=== PATIENT | female | born 1990 | race Caucasian/White ===

== ENCOUNTER 2017-09-24 08:49 | Day surgery (SDC) | payer BC, OTHER ==
[~2017-09-24 08:49] MED LIST: Lactated Ringers 1,000 ML IV SCH; Lidocaine 1%/Sod Bicarbonate in NS 8.4% 1 ML Syringe PRN; Sodium Chloride 0.9% 10 ML Syringe FLUSH PRN
[2017-09-24] MEDS ORDERED: Sodium Chloride 0.9% 50 ML SDV ONE (09:29)
[2017-09-24] MEDS ORDERED: Lidocaine 1% with EPINEPHrine 1:100,000 20 ML MDV ONE (09:29)
--- NOTE | 2017-09-24 09:31 | PCM.PREANE ---
Preanesthetic Assessment - Anesthesia/Transfusion/Family Hx Anesthesia History: Prior Anesthesia Without Reaction Family History of Anesthesia Reaction: No Transfusion History: No Prior Transfusion(s) - Review of Systems General: No Symptoms Pulmonary: No Symptoms Cardiovascular: No Symptoms Gastrointestinal: No Symptoms Neurological: No Symptoms Other: Reports: None - Physical Assessment NPO Status Date: 09/23/17 NPO Status Time: 00:00 Pulse: 89 O2 Sat by Pulse Oximetry: 97 Respiratory Rate: 16 Blood Pressure: 103/61 Temperature: 36.9 C Height: 1.52 m Weight: 86.183 kg ASA Class: 2 Mental Status: Alert & Oriented x3 Airway Class: Mallampati = 1 Dentition: Reports: Normal Dentition Thyro-Mental Finger Breadths: 3 Mouth Opening Finger Breadths: 3 ROM/Head Extension: Full Lungs: Clear to Auscultation, Normal Respiratory Effort Cardiovascular: Regular Rate, Regular Rhythm, No Murmurs - Lab Values: Laboratory Last Values WBC 9.83 K/mm3 (3.98-10.04) 09/24/17 09:14 RBC 5.39 M/mm3 (3.98-5.22) H 09/24/17 09:14 Hgb 13.9 gm/L (11.2-15.7) 09/24/17 09:14 Hct 41.1 % (34.1-44.9) 09/24/17 09:14 MCV 76.3 fl (79.4-94.8) L 09/24/17 09:14 MCH 25.8 pg (25.6-32.2) 09/24/17 09:14 MCHC 33.8 g/dl (32.2-35.5) 09/24/17 09:14 RDW Std Deviation 40.5 fL (36.4-46.3) 09/24/17 09:14 Plt Count 379 K/mm3 (182-369) H 09/24/17 09:14 MPV 9.1 fl (9.4-12.3) L 09/24/17 09:14 Neut % (Auto) 58.9 % (34.0-71.1) 09/24/17 09:14 Lymph % (Auto) 33.2 % (19.3-51.7) 09/24/17 09:14 Webster % (Auto) 6.4 % (4.7-12.5) 09/24/17 09:14 Eos % (Auto) 1.0 (0.7-5.8) 09/24/17 09:14 Baso % (Auto) 0.2 % (0.1-1.2) 09/24/17 09:14 Neut # (Auto) 5.79 K/mm3 (1.56-6.13) 09/24/17 09:14 Lymph # (Auto) 3.26 K/mm3 (1.18-3.74) 09/24/17 09:14 Webster # (Auto) 0.63 K/mm3 (0.24-0.36) H 09/24/17 09:14 Eos # (Auto) 0.10 K/mm3 (0.04-0.36) 09/24/17 09:14 Baso # (Auto) 0.02 K/mm3 (0.01-0.08) 09/24/17 09:14 - Allergies Allergies/Adverse Reactions: Allergies Allergy/AdvReac Type Severity Reaction Status Date / Time adhesive tape Allergy Rash Verified 09/23/17 13:22 cefprozil [From Cefzil] Allergy Cannot Verified 09/23/17 13:22 Remember - Anesthesia Plan Pre-Op Medication Ordered: None - Acknowledgements Anesthesia Type Planned: General Anesthesia Pt an Appropriate Candidate for the Planned Anesthesia: Yes Alternatives and Risks of Anesthesia Discussed w Pt/Guardian: Yes Pt/Guardian Understands and Agrees with Anesthesia Plan: Yes PreAnesthesia Questionnaire HEENT History: Reports: None Cardiovascular History: Reports: None Respiratory History: Reports: None Gastrointestinal History: Reports: None Genitourinary History: Reports: None, 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: , 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 Other OB/BYN History: partial bicornuate uterus, condylomata acuminata, irregular menses, menorrhagia Musculoskeletal History: Reports: None Neurological History: Reports: Migraines Psychiatric History: Reports: Anxiety, Depression, Other (See Below) Other Psychiatric History: fatigue Endocrine/Metabolic History: Reports: None Hematologic History: Reports: Other (See Below) Other Hematologic History: + 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) Immunologic History: Reports: None Oncologic (Cancer) History: Reports: None Dermatologic History: Reports: None - Infectious Disease History Infectious Disease History: Reports: Human Papilloma Virus (HPV) - Past Surgical History Head Surgeries/Procedures: Reports: None HEENT Surgical History: Reports: Oral Surgery Cardiovascular Surgical History: Reports: None Respiratory Surgical History: Reports: None GI Surgical History: Reports: None Female Surgical History: Reports: Section, Other (See Below) Other Female Surgeries/Procedures: HPV removal surgery 2014 Endocrine Surgical History: Reports: None Neurological Surgical History: Reports: None Musculoskeletal Surgical History: Reports: None Oncologic Surgical History: Reports: None - SUBSTANCE USE Smoking Status *Q: Current Every Day Smoker Tobacco Use Within Last Twelve Months: No Second Hand Smoke Exposure: Yes Days Per Week of Alcohol Use: 0 Number of Drinks Per Day: 0 Total Drinks Per Week: 0 Recreational Drug Use History: No - HOME MEDS Home Medications: Home Meds Norelgestromin/Ethin.Estradiol [Xulane Patch] 1 patch TOP Q7D 09/23/17 [History] Phentermine HCl 37.5 mg PO DAILY 09/23/17 [History] - CURRENT (IN HOUSE) MEDS Current Meds: Current Medications Lactated Ringer's (Ringers, Lactated) 1,000 mls @ 125 mls/hr IV ASDIRECTED [facility] Stop: 09/24/17 23:00 Lidocaine/Sodium Bicarbonate (Buffered Lidocaine 1% In Ns 8.4%) 0.25 ml .XX ONETIME PRN PRN Reason: Prior to IV Start Stop: 09/24/17 18:00 Sodium Chloride (Saline Flush) 10 ml FLUSH ASDIRECTED PRN PRN Reason: Keep Vein Open Stop: 09/24/17 18:00
[2017-09-24] MEDS ORDERED: fentaNYL 100 MCG/2 ML SDV ONE ×3 (10:11→11:35)
[2017-09-24] MEDS ORDERED: Ondansetron 4 MG/2 ML SDV ONE (10:11)
[2017-09-24] MEDS ORDERED: Midazolam 1 MG/ML 2 ML SDV ONE (10:11)
[2017-09-24] MEDS ORDERED: Lidocaine 1% 4 ML ONE (10:11)
[2017-09-24] MEDS ORDERED: Propofol 200 MG/20 ML SDV ONE (10:11)
[2017-09-24] MEDS ORDERED: Ketorolac 30 MG/ML SDV ONE (11:03)
[2017-09-24] MEDS ORDERED: Lactated Ringers 1,000 ML ONE (11:08)
--- NOTE | 2017-09-24 11:18 | PCM.OPNOTE ---
- General Post-Op/Procedure Note Date of Surgery/Procedure: 09/24/17 Operative Procedure(s): Electrocoagulation of anogenital genital warts Pre Op Diagnosis: anogenital warts female Post-Op Diagnosis: Same Anesthesia Technique: General Mask Primary Surgeon: Manuel Gonzales Anesthesia Provider: Cornelius Orozco Fluid Replacement, Intraop: 1,200 EBL in mLs: 5 Drain/Tube Comments:: None Complications: None Condition: Good Free Text/Narrative:: Patient was transported to operating room #3 and placed under general anesthesia in the low dorsal lithotomy position and prepared and draped in a sterile fashion. SCDs in place and functioning. Timeout was performed confirming name date of and procedure as electrodesiccation of warts and anoscopy. No antibiotics needed. N95 mask were worn throughout the procedure. Electrode desiccation of the warts was performed. No intravaginal warts. Desiccation was performed of the multiple warts between the introitus and the anus. Injecting approximately 4 mL of 0.25% lidocaine with epinephrine for postoperative pain management. Anoscopy was performed and no intra-abdominal anal warts. There was 1 small wart at approximately 11:00 on the anal verge. This wart was electro desiccated. Patient was transported postanesthesia care unit in satisfactory condition.
[2017-09-24] MEDS ORDERED: fentaNYL 250 MCG/5 ML SDV IVPUSH PRN (11:25)
[2017-09-24] MEDS ORDERED: HYDROmorphone 0.5 MG/0.5 ML Syringe IVPUSH PRN (11:25)
--- NOTE | 2017-09-24 11:26 | PCM.POSTAN ---
POST ANESTHESIA ASSESSMENT - MENTAL STATUS Mental Status: Alert, Oriented - VITAL SIGNS Pulse Rate: 89 SaO2: 94 Resp Rate: 9 Blood Pressure: 99/45 Temperature: 37.2 C - RESPIRATORY Respiratory Status: Respiratory Rate WNL, Airway Patent, O2 Saturation Stable, Supplemental Oxygen - CARDIOVASCULAR CV Status: Pulse Rate WNL, Blood Pressure Stable - GASTROINTESTINAL GI Status: No Symptoms - PAIN Pain Score: 0 - POST OP HYDRATION Hydration Status: Adequate & Stable - OBSERVATIONS Free Text/Narrative:: no anesthesia complications noted
[2017-09-24] MEDS ORDERED: fentaNYL 100 MCG/2 ML SDV IVPUSH PRN (12:00)
[2017-09-24] MEDS ORDERED: Acetaminophen/HYDROcodone 325-5 MG Tab PO ONE (12:30)
[2017-09-24 12:32] VITALS: BP 132/62
== END 2017-09-24 13:05 | disposition home or self-care (01) ==
LOC: JD.SDS 08:49
PROVIDERS: ATTEND Obstetrics & Gynecology
DX: A63.0 Anogenital (venereal) warts (principal); F41.8 Other specified anxiety disorders; F17.200 Nicotine dependence, unspecified, uncomplicated; Z88.1 Allergy status to other antibiotic agents; Z88.8 Allergy status to other drugs, medicaments and biological substances; Z98.890 Other specified postprocedural states; Z79.899 Other long term (current) drug therapy
CPT/HCPCS: 36415; 46910; 84702; 85025; A9270; J1170; J1885; J2250; J2405; J3010; J7120; 00940; J2704

== ENCOUNTER 2017-11-14 12:47 | Emergency (ER) | payer BC ==
[2017-11-14 13:03] VITALS: BP 124/80
--- NOTE | 2017-11-14 13:30 | EDM.PDOC ---
ED HPI GENERAL MEDICAL PROBLEM - General Chief Complaint: Respiratory Problem Stated Complaint: FEVER AND COUGH Time Seen by Provider: 11/14/17 12:52 Source of Information: Reports: Patient History Limitations: Reports: No Limitations - History of Present Illness INITIAL COMMENTS - FREE TEXT/NARRATIVE: This is a 27-year-old female she is also been sick about the same time as her children from last week. She was seen by Dr. Molina and was swabbed for the flu but it was negative. Since that time she has gotten markedly worsening with increasing sore throat some ear pain lots of nasal congestion and she has a severe cough and she has paroxysms of coughing. She denies any wheezing that she is noted. She's had no nausea and vomiting and no diarrhea. She is again in the ER for reevaluation since she is getting worse. She does states she is running a fever but she has not documented it. Generalized Pain Score (Numeric/FACES): 7 - Related Data Allergies Allergy/AdvReac Type Severity Reaction Status Date / Time adhesive tape Allergy Rash Verified 09/23/17 13:22 cefprozil [From Cefzil] Allergy Cannot Verified 09/23/17 13:22 Remember Home Meds: Home Meds Azithromycin [IJP: Azithromycin] 250 mg PO ASDIRECTED #6 tab 11/14/17 [Rx] Codeine/guaiFENesin [guaiFENesin-Codeine Syrup] 5 ml PO Q6H PRN #1 cup 11/14/17 [Rx] Past Medical History HEENT History: Reports: None Cardiovascular History: Reports: None Respiratory History: Reports: None Gastrointestinal History: Reports: None Genitourinary History: Reports: None, 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: , 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 Other OB/BYN History: partial bicornuate uterus, condylomata acuminata, irregular menses, menorrhagia Musculoskeletal History: Reports: None Neurological History: Reports: Migraines Psychiatric History: Reports: Anxiety, Depression, Other (See Below) Other Psychiatric History: fatigue Endocrine/Metabolic History: Reports: None Hematologic History: Reports: Other (See Below) Other Hematologic History: + 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) Immunologic History: Reports: None Oncologic (Cancer) History: Reports: None Dermatologic History: Reports: None - Infectious Disease History Infectious Disease History: Reports: Human Papilloma Virus (HPV) - Past Surgical History Head Surgeries/Procedures: Reports: None HEENT Surgical History: Reports: Oral Surgery Cardiovascular Surgical History: Reports: None Respiratory Surgical History: Reports: None GI Surgical History: Reports: None Female Surgical History: Reports: Section, Other (See Below) Other Female Surgeries/Procedures: HPV removal surgery 2013 Endocrine Surgical History: Reports: None Neurological Surgical History: Reports: None Musculoskeletal Surgical History: Reports: None Oncologic Surgical History: Reports: None Social & Family History - Family History Family Medical History: Noncontributory - Tobacco Use Smoking Status *Q: Current Every Day Smoker Years of Tobacco use: 9 Packs/Tins Daily: 0.3 Used Tobacco, but Quit: Yes Month Tobacco Last Used: 07/2015 Second Hand Smoke Exposure: Yes - Caffeine Use Caffeine Use: Reports: Coffee - Alcohol Use Days Per Week of Alcohol Use: 0 Number of Drinks Per Day: 0 Total Drinks Per Week: 0 - Recreational Drug Use Recreational Drug Use: No ED ROS GENERAL - Review of Systems Review Of Systems: See Below Constitutional: Reports: Fever, Chills, Malaise HEENT: Reports: Ear Pain, Rhinitis, Throat Pain. Denies: Ear Discharge Respiratory: Reports: Shortness of Breath, Cough, Sputum. Denies: Wheezing Cardiovascular: Reports: No Symptoms Endocrine: Reports: No Symptoms GI/Abdominal: Denies: Abdominal Pain, Diarrhea, Nausea, Vomiting : Reports: No Symptoms Musculoskeletal: Reports: No Symptoms Skin: Reports: No Symptoms Neurological: Reports: No Symptoms Psychiatric: Reports: No Symptoms Hematologic/Lymphatic: Reports: No Symptoms ED EXAM, GENERAL - Physical Exam Exam: See Below Exam Limited By: No Limitations General Appearance: Alert, WD/WN, No Apparent Distress, Lethargic Eye Exam: Bilateral Eye: Normal Inspection Ears: Normal External Exam, Normal Canal, Normal TMs Nose: Nasal Drainage, Clear Rhinorrhea. No: Nasal Flaring Throat/Mouth: Normal Inspection, Normal Lips, Normal Voice, No Airway Compromise , Other (She is noted to have redness of the tonsils but they're not swollen and no exudates noted) Head: Normocephalic Neck: Normal Inspection, Supple, Non-Tender Respiratory/Chest: No Respiratory Distress, Lungs Clear, Other (When she takes deep breath she coughs persistently, however I don't hear any inspiratory or expiratory wheezing I don't hear any consolidation in the bases, she has no respiratory distress no intercostal retractions the only time she seems to be distress as when she starts coughing). No: Crackles, Rales, Rhonchi, Wheezing Cardiovascular: Regular Rate, Rhythm, No Murmur, Tachycardia GI/Abdominal: Soft Back Exam: Full Range of Motion Extremities: Normal Inspection, Normal Range of Motion Neurological: Alert, Oriented Psychiatric: Normal Affect, Normal Mood Skin Exam: Warm, Dry Course - Vital Signs Last Recorded V/S: Last Vital Signs Temp 37.7 F L 11/14/17 13:34 Pulse 130 H 11/14/17 13:02 Resp 40 H 11/14/17 13:02 BP 124/80 11/14/17 13:02 Pulse Ox 98 11/14/17 13:02 - Re-Assessments/Exams Free Text/Narrative Re-Assessment/Exam: 11/14/17 14:26 I spoke to the patient about the positive influenza B. She is been sick for almost 5 days now so I don't feel anti-influenza medications will make much difference. However I do believe that she is gotten an infection in her lungs or bronchitis and that she'll need some antibiotics as well as something for her cough. Departure - Departure Time of Disposition: 14:27 Disposition: Home, Self-Care 01 Condition: Fair Clinical Impression: Influenza B Acute bronchitis Qualifiers: Bronchitis organism: unspecified organism Qualified Code(s): J20.9 - Acute bronchitis, unspecified Reactive airway disease Qualifiers: Asthma severity: mild Asthma persistence: persistent Asthma complication type: uncomplicated Qualified Code(s): J45.30 - Mild persistent asthma, uncomplicated - Discharge Information Prescriptions: Azithromycin [IJP: Azithromycin] 250 mg PO ASDIRECTED #6 tab Codeine/guaiFENesin [guaiFENesin-Codeine Syrup] 5 ml PO Q6H PRN #1 cup PRN Reason: Cough Referrals: Oliva Vargas MD [Primary Care Provider] - Forms: ED Department Discharge Additional Instructions: Start the antibiotics as soon you get them, use the cough syrup as needed, try to sleep at an incline instead of flat so you can clear your phlegm, rest and sleep as much as possible, drink lots of fluids but no sugar and caffeine, follow up with your family physician later this week for recheck, if your symptoms worsen return to the ER
== END 2017-11-14 15:20 | disposition home or self-care (01) ==
LOC: JD.ED 12:47
DX: J45.30 Mild persistent asthma, uncomplicated (principal); J20.9 Acute bronchitis, unspecified; J10.1 Influenza due to other identified influenza virus with other respiratory manifestations; F17.210 Nicotine dependence, cigarettes, uncomplicated; Z88.1 Allergy status to other antibiotic agents; Z91.048 Other nonmedicinal substance allergy status
CPT/HCPCS: 87804; 99283

== ENCOUNTER 2018-02-11 08:05 | Day surgery (SDC) | payer BC ==
[~2018-02-11 08:05] MED LIST changes: +Lidocaine 1%/Sod Bicarbonate in NS 8.4% 1 ML Syringe IDERM PRN; -Lidocaine 1%/Sod Bicarbonate in NS 8.4% 1 ML Syringe PRN
--- NOTE | 2018-02-11 08:13 | PCM.PREANE ---
Preanesthetic Assessment - Anesthesia/Transfusion/Family Hx Anesthesia History: Prior Anesthesia Without Reaction Family History of Anesthesia Reaction: No Transfusion History: No Prior Transfusion(s) Intubation History: Unknown - Review of Systems General: Fatigue Pulmonary: No Symptoms (smoker: 0.5 pack per 3 days times 8 years) Cardiovascular: No Symptoms Gastrointestinal: No Symptoms Neurological: No Symptoms (Lower back pain: 4/10 currently), Headache (history of migraine headaches), Seizure (infant febrile seizure), Tingling (left arm depending on positioning) Other: Reports: None (history of polycystic ovarian syndrome), Depression, Anxiety - Physical Assessment NPO Status Date: 02/10/18 NPO Status Time: 22:30 Pulse: 116 O2 Sat by Pulse Oximetry: 98 Respiratory Rate: 16 Blood Pressure: 99/66 Temperature: 36.6 C Height: 1.52 m Weight: 82.554 kg ASA Class: 2 Mental Status: Alert & Oriented x3 Airway Class: Mallampati = 2 Dentition: Reports: Normal Dentition, Caries Thyro-Mental Finger Breadths: 3 Mouth Opening Finger Breadths: 3 ROM/Head Extension: Full Lungs: Clear to Auscultation, Normal Respiratory Effort Cardiovascular: Regular Rate, Regular Rhythm, No Murmurs - Lab Values: Labs reviewed and noted and within acceptable ranges to proceed with scheduled procedure. - Allergies Allergies/Adverse Reactions: Allergies Allergy/AdvReac Type Severity Reaction Status Date / Time adhesive tape Allergy Rash Verified 02/10/18 12:15 cefprozil [From Cefzil] Allergy Cannot Verified 02/10/18 12:15 Remember - Anesthesia Plan Pre-Op Medication Ordered: None - Acknowledgements Anesthesia Type Planned: General Anesthesia Pt an Appropriate Candidate for the Planned Anesthesia: Yes Alternatives and Risks of Anesthesia Discussed w Pt/Guardian: Yes Pt/Guardian Understands and Agrees with Anesthesia Plan: Yes PreAnesthesia Questionnaire HEENT History: Reports: None Cardiovascular History: Reports: None Respiratory History: Reports: None Gastrointestinal History: Reports: None Genitourinary History: Reports: None, STD Other Genitourinary History: HPV, 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: , 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 Other OB/BYN History: partial bicornuate uterus, condylomata acuminata, irregular menses, menorrhagia Musculoskeletal History: Reports: None Neurological History: Reports: Migraines Psychiatric History: Reports: Anxiety, Depression, Other (See Below) Other Psychiatric History: fatigue Endocrine/Metabolic History: Reports: None Hematologic History: Reports: Other (See Below) Other Hematologic History: + 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) Immunologic History: Reports: None Oncologic (Cancer) History: Reports: None Dermatologic History: Reports: None - Infectious Disease History Infectious Disease History: Reports: Human Papilloma Virus (HPV) - Past Surgical History Head Surgeries/Procedures: Reports: None HEENT Surgical History: Reports: Oral Surgery Cardiovascular Surgical History: Reports: None Respiratory Surgical History: Reports: None GI Surgical History: Reports: None Female Surgical History: Reports: Section, Other (See Below) Other Female Surgeries/Procedures: HPV removal surgery x2 Endocrine Surgical History: Reports: None Neurological Surgical History: Reports: None Musculoskeletal Surgical History: Reports: None Oncologic Surgical History: Reports: None - SUBSTANCE USE Smoking Status *Q: Current Every Day Smoker Tobacco Use Within Last Twelve Months: Cigarettes Second Hand Smoke Exposure: Yes Days Per Week of Alcohol Use: 0 Number of Drinks Per Day: 0 Total Drinks Per Week: 0 Recreational Drug Use History: No - HOME MEDS Home Medications: Home Meds . [No Known Home Meds] 02/10/18 [History] - CURRENT (IN HOUSE) MEDS Current Meds: Current Medications Lactated Ringer's (Ringers, Lactated) 1,000 mls @ 125 mls/hr IV ASDIRECTED [facility] Lidocaine/Sodium Bicarbonate (Buffered Lidocaine 1% In Ns 8.4%) 0.25 ml IDERM ONETIME PRN PRN Reason: Prior to IV Start Sodium Chloride (Saline Flush) 10 ml FLUSH ASDIRECTED PRN PRN Reason: Keep Vein Open
[2018-02-11] MEDS ORDERED: Propofol 200 MG/20 ML SDV ONE (09:43)
[2018-02-11] MEDS ORDERED: Ondansetron 4 MG/2 ML SDV ONE (09:43)
[2018-02-11] MEDS ORDERED: Rocuronium 50 MG/5 ML Vial ONE (09:43)
[2018-02-11] MEDS ORDERED: fentaNYL 250 MCG/5 ML SDV ONE (09:44)
[2018-02-11] MEDS ORDERED: ceFAZolin 1 GM Vial ONE (09:44)
[2018-02-11] MEDS ORDERED: Ketorolac 30 MG/ML SDV ONE (10:15)
[2018-02-11] MEDS: Bupivacaine 0.5% 30 ML SDV ONE ×2 (10:15→10:41)
[2018-02-11] MEDS ORDERED: Lactated Ringers 1,000 ML ONE (10:17)
[2018-02-11] MEDS ORDERED: HYDROmorphone 0.5 MG/0.5 ML Syringe ONE ×2 (10:22→10:47)
[2018-02-11] MEDS ORDERED: Meperidine PF 50 MG/ML Syringe IVPUSH PRN (10:23)
[2018-02-11] MEDS ORDERED: HYDROmorphone 0.5 MG/0.5 ML SYRINGE IVPUSH PRN (10:23)
[2018-02-11] MEDS ORDERED: Ondansetron 4 MG/2 ML SDV IVPUSH PRN (10:23)
[2018-02-11] MEDS ORDERED: fentaNYL 100 MCG/2 ML SDV IVPUSH PRN (10:23)
[2018-02-11] MEDS ORDERED: fentaNYL 100 MCG/2 ML SDV ONE (11:06)
[2018-02-11] MEDS ORDERED: Neostigmine Methylsulfate 1 MG/ML 5 ML Syringe ONE (11:30)
--- NOTE | 2018-02-11 11:44 | PCM.POSTAN ---
POST ANESTHESIA ASSESSMENT - MENTAL STATUS Mental Status: Alert, Oriented - VITAL SIGNS Pulse Rate: 100 SaO2: 95 Resp Rate: 16 Blood Pressure: 93/56 Temperature: 98 F - RESPIRATORY Respiratory Status: Respiratory Rate WNL, Airway Patent, O2 Saturation Stable, Supplemental Oxygen - CARDIOVASCULAR CV Status: Pulse Rate WNL, Blood Pressure Stable - GASTROINTESTINAL GI Status: No Symptoms - PAIN Pain Score: 0 - POST OP HYDRATION Hydration Status: Adequate & Stable
--- NOTE | 2018-02-11 11:45 | PCM.OPNOTE ---
- General Post-Op/Procedure Note Date of Surgery/Procedure: 02/11/18 Operative Procedure(s): Laparoscopy with wedge resection both ovaries 82325. Laparoscopy with lysis of adhesions 72422. Laparoscopy with paratubal cyst removal 54136. Hysteroscopy with D&C 60136 Pre Op Diagnosis: Menorrhagia, irregular menses, polycystic ovaries, pelvic pain Post-Op Diagnosis: Menorrhagia, irregular menses, polycystic ovaries, adhesions omental to abdominal wall Primary Surgeon: Manuel Gonzales Secondary Surgeon: Wilver Fofana Anesthesia Provider: Doug Romeo Reason Experimental Box Tester Was Necessary: Decrease comorbidity, co-mortality, difficult procedure, assist in surgery. Retraction. Laparoscopic surgical skills Role of Experimental Box Tester: Decrease comorbidity, co-mortality, difficult procedure, assist in surgery. Retraction. Laparoscopic surgical skills Fluid Replacement, Intraop: 1,600 Output, Urine Amount: 0 EBL in mLs: 10 Drain/Tube Comments:: none Complications: None Condition: Good Free Text/Narrative:: Patient was transported to the operating room and placed under general anesthesia with endotracheal intubation the low dorsal lithotomy position. SCDs in place and functioning prior surgery. Ancef 2 g given intravenously prior surgery without untoward effect. Prepared and draped in sterile fashion. Time out performed confirming name, date of and procedure. The area of planned umbilical incision injected with 2 ml marcaine 0.5 and 5 mm incision made and pneumoperitoneum needle introduced and pneumoperitoneum obtained without difficulty. One dense adhesion of the omentum to the anterior abdominal wall was encountered. Suprapubic 5 mm port was placed in the same fashion as the umbilical port above the scope was then introduced into the suprapubic port and the adhesion was able to be lysed with the Harmonic instrument. Additional ports were placed at left and right anterior axillary line 2 fingers in in 2 fingers above the superior iliac crest, with transillumination of the abdominal wall to attempt to avoid any vascular damage. The adhesion of the omentum to the anterior abdominal wall having been lysed, attention was turned to the pelvic organs both ovaries appeared to be polycystic in nature with multiple small excrescences consistent with fibromas. These excrescences were removed by crossclamping with the Harmonic instrument. Removed and sent to pathology for tissue evaluation. Both ovaries were evaluated and multiple cysts beneath the cortex of each ovary were noted consistent with the findings of the ultrasound films which were reviewed prior to surgery at patient's preoperative visit. The left ovary was grasped and approximately 20-25% of the ovary removed by introducing a Harmonic instrument and removing the tissue on the anti-meso- ovarian side. Approximately 2 g of tissue removed from each ovary. Multiple cysts were drained with the Harmonic instrument. Left paratubal cyst was removed by cross clamping the pedicle and activating the Harmonic instrument. Same procedure was carried out on the right ovary with additional small excrescences consistent with fibromas being removed from the left and right ovary as noted. The cul-de-sac was examined no evidence of endometriosis posterior or anterior cul-de-sac. Both tubes were normal with the exception of the small paratubal cyst that was removed from the left tube. Some filmy adhesions in the anterior cul-de-sac from previous were lysed with out difficulty. The appendix was evaluated and curved behind peritoneal reflection and was not disturbed. Interceed was then placed one half sheet left ovary and one half sheet on the right ovary and 3 mL of saline introduced to moisten the sheet and prevent dislodgment. All tissue was sent to pathology for tissue evaluation sponge needle pack asthma and sharp count correct 2 and the pneumoperitoneum reduced removing the left and right flank trochars first and observation showed no bleeding in the area of the trocar placement. The suprapubic trocar was removed no bleeding. The umbilical trocar was then removed after the pneumoperitoneum was reduced. The skin incisions were closed with 3-0 Monocryl interrupted suture and Dermabond applied. Attention was then turned to the D&C and hysteroscopy. Uterus was grasped with long Allis clamp and sounded to 8 cm. Carefully dilated to accommodate the hysteroscope and hysteroscopy was performed revealing what appeared to be an arcuate uterus left and right tubal ostia were easily visualized. No polyps. Curettage performed all tissue sent to pathology for tissue evaluation. Reevaluation of the endometrial cavity with the hysteroscope revealed no significant amount of tissue remaining and all tissue sent to pathology as noted above. Sponge needle pack instrument count correct. Patient was transported to postanesthesia care unit in satisfactory condition. No blood transfusions required. Summary of photographs: Image 001 adhesion dense omentum to anterior abdominal wall just below the umbilical trocar. Image 002 shows the left ovary and fallopian tube as well as the uterus Image 003 shows left ovary with small excrescence consistent with a possible fibroma. This was removed. Image 004 shows the left ovary with placement of the Harmonic scalpel to remove approximately 2 grams of tissue from the ovary as wedge resection. Image 005 shows the right ovary with small excrescence noted insistent with a fibroma. Image 006 shows the right ovary and left ovary after the wedge resections have been performed. Image 007 shows the appendix sweeping posterior behind the peritoneum. Image 008 shows the posterior cul-de-sac with no areas suggesting endometriosis. Image 009 shows anterior cul-de-sac with no areas of suspected endometriosis Image 010 shows both ovaries after having had the Interceed placed Image 011 shows the left flank incision after removal of trocar peritoneal surface with no bleeding. Image 012 shows hysteroscopy view of the right tubal ostium Image 013 shows hysteroscopic view of the left tubal ostium Image 014 shows tissue in the endometrial cavity and the midline of the endometrial cavity consistent with arcuate presentation. Image 015 shows additional tissue at the interior cervical os inferior portion of the endometrial cavity.
[2018-02-11] MEDS ORDERED: HYDROmorphone 0.5 MG/0.5 ML Syringe IVPUSH PRN (12:10)
[2018-02-11 13:47] VITALS: BP 106/76
== END 2018-02-11 13:55 | disposition home or self-care (01) ==
LOC: JD.SDS 08:05
PROVIDERS: ATTEND Obstetrics & Gynecology
DX: D27.0 Benign neoplasm of right ovary (principal); E28.2 Polycystic ovarian syndrome; K66.0 Peritoneal adhesions (postprocedural) (postinfection); N83.12 Corpus luteum cyst of left ovary; N83.8 Other noninflammatory disorders of ovary, fallopian tube and broad ligament; F53 Mental and behavioral disorders associated with the puerperium, not elsewhere classified; Q51.3 Bicornate uterus; F41.8 Other specified anxiety disorders; Z88.8 Allergy status to other drugs, medicaments and biological substances
CPT/HCPCS: 36415; 58661; 58662; 84703; C1765; J0690; J1170; J1885; J2405; J2710; J3010; J7120; 00840; 88305; J2704

== ENCOUNTER 2019-01-27 12:12 | Inpatient (IN) | payer OTHER ==
[2019-01-27] MEDS ORDERED: Ondansetron 4 MG/2 ML SDV IVPUSH PRN ×2 (12:38→14:19)
[2019-01-27] MEDS ORDERED: Sodium Chloride 0.9% 10 ML Syringe FLUSH PRN (12:38)
[2019-01-27] MEDS ORDERED: Nalbuphine 20 MG/ML 1 ML Syringe IVPUSH PRN (12:38)
--- NOTE | 2019-01-27 13:22 | PCM.LDHP ---
L&D History of Present Illness - General Date of Service: 01/27/19 Admit Problem/Dx: Patient Status Order with Admit Dx/Problem 01/27/19 12:38 Patient Status [ADT] Routine Admission Diagnosis/Problem Admission Diagnosis/Problem Source of Information: Patient History Limitations: Reports: No Limitations - History of Present Illness Introduction:: 28 y/o ASHLY 02/03/2019 EGA 39.0 weeks. Patient has had one prior CS due to footling breech presentation (second delivery), prior to that one vaginal delivery. Spontaneous Rupture of membranes this AM about 1130, clear fluid. Irregular contractions. Cervix 3 cm, 50% effaced, soft, posterior, vertex-3. Had been scheduled for repeat CS Wednesday01/30/19 due to USG revealing decreasing fetwl weight. Would like TOLAC/ and I have had through discussion of potential benefits/risk of same, including rupture of uterine scar and possible co-morbidity and mortality associated with same, as well as risk of section including but not limited to bleeding, infection, allergic reaction, rupture of uterus, bowel, bladder, ureteral damage and additional surgery. Will proceed with attempted TOLAC/ per patient wisshes and no contraindication to same at present. Patient had H/O Jka antibody. Last titer was 4. Babies weight estimated in 16th %tile EFW and has decreased over the last two weeks. USG measurement of EFW no absolutely accurate, confounding the process. Previous delivery 10/30/2012 at 33 weeks estimated gestational age length of labor 27 hours baby's weight 5 lbs. 7 oz. normal spontaneous vaginal delivery under epidural anesthesia Delivery 04/03/2016 at 38 weeks and 1 hour of labor due to footling presentation section performed Patient is 3 cm dilated now and will attempt having had complete discussion with she and her about the S than edges and disadvantages of same. Blood type A positive with positive antibody in (Jka) last titer 4. On 07/25/18 hemoglobin hematocrit 12.4/37.1 with MCV of 76.8 and platelets 415,000. Rubella immune. RPR nonreactive. Urine culture mixed donna suggesting contamination. Negative hepatitis B surface antigen. Negative HIV. GC and chlamydia probe negative on 07/25/18 GBS negative. Patient known to have a bicornuate uterus. Quality: Reports: Pressure Severity: Mild Pain Score: 2 Improves with: Reports: None Worsens with: Reports: None Associated Symptoms: Reports: N - Related Data Allergies/Adverse Reactions: Allergies Allergy/AdvReac Type Severity Reaction Status Date / Time adhesive tape Allergy Rash Verified 05/19/18 18:40 cefprozil [From Cefzil] Allergy Cannot Verified 05/19/18 18:40 Remember nifedipine Allergy Swelling Verified 05/19/18 18:40 Home Medications: Home Meds . 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 <75 Hematologic History: Reports: Other (See Below) Other Hematologic History: + 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) Immunologic History: Reports: None Oncologic (Cancer) History: Reports: None Dermatologic History: Reports: None - Infectious Disease History Infectious Disease History: Reports: Human Papilloma Virus (HPV) - Past Surgical History Head Surgeries/Procedures: Reports: None HEENT Surgical History: Reports: Oral Surgery Cardiovascular Surgical History: Reports: None Respiratory Surgical History: Reports: None GI Surgical History: Reports: None Female Surgical History: Reports: Section, D&C, Other (See Below) Other Female Surgeries/Procedures: HPV removal surgery x2, Part of ovary removed, and an endo scrape Endocrine Surgical History: Reports: None Neurological Surgical History: Reports: None Musculoskeletal Surgical History: Reports: None Oncologic Surgical History: Reports: None Social & Family History - Family History Family Medical History: Noncontributory - Caffeine Use Caffeine Use: Reports: Coffee, Energy Drinks, Soda, Tea H&P Review of Systems - Review of Systems: Review Of Systems: See Below General: Reports: No Symptoms HEENT: Reports: No Symptoms Pulmonary: Reports: No Symptoms Cardiovascular: Reports: No Symptoms Gastrointestinal: Reports: No Symptoms Genitourinary: Reports: No Symptoms Musculoskeletal: Reports: No Symptoms Skin: Reports: No Symptoms Psychiatric: Reports: No Symptoms Neurological: Reports: No Symptoms Hematologic/Lymphatic: Reports: No Symptoms Immunologic: Reports: No Symptoms L&D Exam - Exam Exam: See Below - OB Specific Fundal Height In cm: 39 Contraction Duration (sec): 60 Contraction Frequency (min): 34 Contraction Intensity: Mild Movement: Active Heart Tones: Present Heart Tones per Min: 145 Heart Rate (FHR) Variability: Moderate (6-25 bmp) Presentation: Vertex - Grimes Score Grimes Score Cervix Position: Posterior Grimes Score Consistency: Soft Grimes Score Effacement: 31-50% Grimes Score Dilation: 3-4 cm Grimes Score Infant's Station: -3 Grimes Score Total: 5 - Exam General: Alert, Oriented HEENT: Conjunctiva Clear, Mucosa Moist & [place], Pupils Equal Neck: Supple, Trachea Midline Lungs: Clear to Auscultation, Normal Respiratory Effort Cardiovascular: Regular Rate, Regular Rhythm GI/Abdominal Exam: Normal Bowel Sounds, Soft Genitourinary: Normal external exam (see cervical dilatation above) Extremities: Normal Inspection, Normal Range of Motion, Non-Tender, No Pedal Edema, Normal Capillary Refill Skin: Warm, Dry, Intact Psychiatric: Alert, Normal Affect, Normal Mood - Problem List (1) Desires (vaginal after ) trial SNOMED Code(s): 045583111, 353225732 ICD Code: O34.219 - MATERNAL CARE FOR UNSP TYPE SCAR FROM PREVIOUS DEL Status: Acute Current Visit: Yes (2) H/O section complicating SNOMED Code(s): 537997531, 943297709 ICD Code: O34.219 - MATERNAL CARE FOR UNSP TYPE SCAR FROM PREVIOUS DEL Status: Acute Current Visit: Yes (3) Raised antibody titer SNOMED Code(s): 474198370 ICD Code: R76.0 - RAISED ANTIBODY TITER Status: Acute Current Visit: Yes (4) Maternal atypical antibody affecting in third trimester SNOMED Code(s): 445563678, 338211629 ICD Code: O36.1930 - MATERNAL CARE FOR OTH ISOIMMUNIZATION, THIRD TRIMESTER, UNSP Status: Acute Current Visit: Yes Qualifiers: Fetus number: single or unspecified fetus Qualified Code(s): O36.1930 - Maternal care for other isoimmunization, third trimester, not applicable or unspecified (5) 39 weeks gestation of SNOMED Code(s): 06339114 ICD Code: Z3A.39 - 39 WEEKS GESTATION OF Status: Acute Current Visit: No (6) Bicornuate uterus affecting in third trimester, antepartum SNOMED Code(s): 984765141 ICD Code: O34.593 - MATERNAL CARE FOR OTH ABNLT OF GRAVID UTERUS, THIRD TRI; Q51.3 - BICORNATE UTERUS Status: Acute Current Visit: No (7) Previous delivery, antepartum SNOMED Code(s): 597741385, 614779057 ICD Code: O34.219 - MATERNAL CARE FOR UNSP TYPE SCAR FROM PREVIOUS DEL Status: Acute Current Visit: No Problem List Initiated/Reviewed/Updated: No Orders Last 24hrs: Active Orders 24 hr Category Date Time Status Patient Status [ADT] Routine ADT 01/27/19 12:38 Active Activity as Tolerated [RC] PFP Care 01/27/19 12:38 Active Communication Order [RC] ASDIRECTED Care 01/27/19 12:38 Active Heart Tones [RC] ASDIRECTED Care 01/27/19 12:38 Active Non Stress Test [RC] PER UNIT ROUTINE Care 01/27/19 12:38 Active Notify Provider [RC] PFP Care 01/27/19 12:38 Active Notify Provider [RC] PRN Care 01/27/19 12:38 Active Peripheral IV Care [RC] . DIRECTED Care 01/27/19 12:38 Active Pump Management, Intrathecal [RC] ASDIRECTED Care 01/27/19 12:40 Active Urinary Catheter Assessment [RC] ASDIRECTED Care 01/27/19 12:38 Active Vital Signs [RC] PER UNIT ROUTINE Care 01/27/19 12:38 Active Regular Diet [DIET] Diet 01/27/19 Lunch Active CBC WITH AUTO DIFF [HEME] Routine Lab 01/27/19 12:38 Ordered RAPID PLASMA REAGIN,RPR [CHEM] Routine Lab 01/27/19 12:38 Ordered TYPE AND SCREEN [BBK] Routine Lab 01/27/19 12:38 Ordered Lactated Ringers [Ringers, Lactated] 1,000 ml Med 01/27/19 12:45 Active IV ASDIRECTED Nalbuphine [Nubain] Med 01/27/19 12:38 Active 10 mg IVPUSH Q2H PRN Ondansetron [Zofran] Med 01/27/19 12:38 Active 4 mg IVPUSH Q4H PRN Sodium Chloride 0.9% [Saline Flush] Med 01/27/19 12:38 Active 10 ml FLUSH ASDIRECTED PRN Electronic Heart Tones Ext w TOCO [WOMSER] Oth 01/27/19 12:38 Ordered Routine Electronic Heart Tones Internal [WOMSER] Per Unit Oth 01/27/19 12:38 Ordered Routine Peripheral IV Insertion Adult [OM.PC] Routine Oth 01/27/19 12:38 Ordered Resuscitation Status Routine Resus Stat 01/27/19 12:38 Ordered Medication Orders Lactated Ringer's (Ringers, Lactated) 1,000 mls @ 100 mls/hr IV ASDIRECTED EVERETTE Nalbuphine HCl (Nubain) 10 mg IVPUSH Q2H PRN PRN Reason: pain Ondansetron HCl (Zofran) 4 mg IVPUSH Q4H PRN PRN Reason: Nausea/Vomiting Sodium Chloride (Saline Flush) 10 ml FLUSH ASDIRECTED PRN PRN Reason: Keep Vein Open Assessment/Plan Comment:: Plan TOLAC/ with section if needed. Due to her antibody titer (Jka ) blood in needed will need to be O negative if needed STAT because her blood will need to be sent to [facility] and no Jka antibody free blood in our lab.
[2019-01-27] MEDS ORDERED: ePHEDrine 50 MG/ML SDV IVPUSH PRN (14:19)
[2019-01-27] MEDS ORDERED: fentaNYL/Bupivacaine-NS 2 MCG/ML-0.125%/PF 100 ML Bag EPIDUR ONE (14:19)
[2019-01-27] MEDS ORDERED: diphenhydrAMINE 50 MG/ML SDV IVPUSH PRN (14:19)
[2019-01-27] MEDS ORDERED: fentaNYL 100 MCG/2 ML SDV EPIDUR PRN (14:19)
--- NOTE | 2019-01-27 14:19 | PCM.PREANE ---
Preanesthetic Assessment - Anesthesia/Transfusion/Family Hx Anesthesia History: Prior Anesthesia Without Reaction Family History of Anesthesia Reaction: No Transfusion History: No Prior Transfusion(s) Intubation History: Unknown - Review of Systems General: No Symptoms Pulmonary: No Symptoms Cardiovascular: No Symptoms Gastrointestinal: Other (Heart burn) Neurological: Headache (Migraines), Other (States she has a "bad back" seeks careers counsellor as needed. Previous epidural took multiple attempts in [place]. Does not have any numbness/tingling in her legs. No current back pain other than labor pains. ) Other: Reports: Diabetes (Hypoglycemia), Depression, Anxiety - Physical Assessment O2 Sat by Pulse Oximetry: 98 Respiratory Rate: 18 Vital Signs: Last Vital Signs Temp 36.7 C 01/27/19 12:38 Pulse 93 01/27/19 12:38 Resp 18 01/27/19 12:38 BP 129/85 01/27/19 12:38 Pulse Ox 98 01/27/19 12:38 Height: 1.52 m Weight: 93.894 kg ASA Class: 2 Mental Status: Alert & Oriented x3 Airway Class: Mallampati = 1 Dentition: Reports: Normal Dentition Thyro-Mental Finger Breadths: 3 Mouth Opening Finger Breadths: 3 ROM/Head Extension: Full Lungs: Clear to Auscultation, Normal Respiratory Effort Cardiovascular: Regular Rate, Regular Rhythm - Lab Values: Laboratory Last Values WBC 9.95 K/mm3 (3.98-10.04) 01/27/19 12:58 RBC 4.45 M/mm3 (3.98-5.22) 01/27/19 12:58 Hgb 10.7 gm/L (11.2-15.7) L 01/27/19 12:58 Hct 32.8 % (34.1-44.9) L 01/27/19 12:58 MCV 73.7 fl (79.4-94.8) L 01/27/19 12:58 MCH 24.0 pg (25.6-32.2) L 01/27/19 12:58 MCHC 32.6 g/dl (32.2-35.5) 01/27/19 12:58 RDW Std Deviation 41.1 fL (36.4-46.3) 01/27/19 12:58 Plt Count 362 K/mm3 (182-369) 01/27/19 12:58 MPV 9.9 fl (9.4-12.3) 01/27/19 12:58 Neut % (Auto) 74.0 % (34.0-71.1) H 01/27/19 12:58 Lymph % (Auto) 19.4 % (19.3-51.7) 01/27/19 12:58 [place] % (Auto) 5.5 % (4.7-12.5) 01/27/19 12:58 Eos % (Auto) 0.5 (0.7-5.8) L 01/27/19 12:58 Baso % (Auto) 0.1 % (0.1-1.2) 01/27/19 12:58 Neut # (Auto) 7.36 K/mm3 (1.56-6.13) H 01/27/19 12:58 Lymph # (Auto) 1.93 K/mm3 (1.18-3.74) 01/27/19 12:58 [place] # (Auto) 0.55 K/mm3 (0.24-0.36) H 01/27/19 12:58 Eos # (Auto) 0.05 K/mm3 (0.04-0.36) 01/27/19 12:58 Baso # (Auto) 0.01 K/mm3 (0.01-0.08) 01/27/19 12:58 Blood Type A POSITIVE 01/27/19 12:58 Gel Antibody Screen Positive 01/27/19 12:58 - Allergies Allergies/Adverse Reactions: Allergies Allergy/AdvReac Type Severity Reaction Status Date / Time adhesive tape Allergy Rash Verified 05/19/18 18:40 cefprozil [From Cefzil] Allergy Cannot Verified 05/19/18 18:40 Remember nifedipine Allergy Swelling Verified 05/19/18 18:40 - Acknowledgements Anesthesia Type Planned: Epidural Pt an Appropriate Candidate for the Planned Anesthesia: Yes Alternatives and Risks of Anesthesia Discussed w Pt/Guardian: Yes Pt/Guardian Understands and Agrees with Anesthesia Plan: Yes PreAnesthesia Questionnaire HEENT History: Reports: None Cardiovascular History: Reports: None Respiratory History: Reports: None Gastrointestinal History: Reports: None Genitourinary History: Reports: None, STD Other Genitourinary History: HPV, hematuria 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 <75 Hematologic History: Reports: Other (See Below) Other Hematologic History: + 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) Immunologic History: Reports: None Oncologic (Cancer) History: Reports: None Dermatologic History: Reports: None - Infectious Disease History Infectious Disease History: Reports: Human Papilloma Virus (HPV) - Past Surgical History Head Surgeries/Procedures: Reports: None HEENT Surgical History: Reports: Oral Surgery Cardiovascular Surgical History: Reports: None Respiratory Surgical History: Reports: None GI Surgical History: Reports: None Female Surgical History: Reports: Section, D&C, Other (See Below) Other Female Surgeries/Procedures: HPV removal surgery x2, Part of ovary removed, and an endo scrape Endocrine Surgical History: Reports: None Neurological Surgical History: Reports: None Musculoskeletal Surgical History: Reports: None Oncologic Surgical History: Reports: None - SUBSTANCE USE Smoking Status *Q: Former Smoker Tobacco Use Within Last Twelve Months: Cigarettes Second Hand Smoke Exposure: Yes Recreational Drug Use History: No - HOME MEDS Home Medications: Home Meds Vits #93/Iron Fum/FA [ Formula Tablet] 1 tab PO DAILY 01/27/19 [History] diphenhydrAMINE HCl [Benadryl Allergy] 25 mg PO DAILY PRN 01/27/19 [History] - CURRENT (IN HOUSE) MEDS Current Meds: Current Medications Lactated Ringer's (Ringers, Lactated) 1,000 mls @ 100 mls/hr IV ASDIRECTED EVERETTE Nalbuphine HCl (Nubain) 10 mg IVPUSH Q2H PRN PRN Reason: pain Ondansetron HCl (Zofran) 4 mg IVPUSH Q4H PRN PRN Reason: Nausea/Vomiting Sodium Chloride (Saline Flush) 10 ml FLUSH ASDIRECTED PRN PRN Reason: Keep Vein Open
[2019-01-27] MEDS: Lactated Ringers 1,000 ML IV SCH ×5 (14:58→22:37)
[2019-01-27] MEDS ORDERED: Oxytocin/Lactated Ringers 10 UNIT/1,000 ML BAG IV SCH (16:30)
--- NOTE | 2019-01-27 16:57 | PCM.SN ---
- Free Text/Narrative Note: Cervix 4 CM, 80% effaced, soft, midposition Vertex-3. Epidural in place and working well. Beginning Pitocin as no change in cervix for 3 hours. Cat I FHT.
--- NOTE | 2019-01-27 20:22 | PCM.SN ---
- Free Text/Narrative Note: Erna is 5 cm dilated 90% effaced soft mid position to anterior with category 1 heart rates with 2 variable decelerations noted between 1950 and 1999 hrs. Uterine pressure catheter placed just now to see if patient having adequate contractions. heart tone electrode also placed. Patient is having Pitocin augmentation and presently at 10 M IUs per minute. I had a discussion with patient and her will see if there is any additional progress in the next hour and a half and if not significant progress will proceed with section. Will also place heart rate electrode. The B strep negative. I did talk with ribbon hanking machine operator SASH FINISHER doctor Omar, and room service associate Dr. Thrasher so that they are aware of possible section if no progress is made. Bring room and anesthesia will also be alerted.
[2019-01-28] MEDS ORDERED: Clindamycin Phosphate 900 MG in Sodium Chloride 0.9% 100 ML IV ONE ×2 (00:49→01:00)
[2019-01-28] MEDS ORDERED: Citric Acid/Sodium Citrate Solution 30 ML Cup PO ONE (00:52)
[2019-01-28] MEDS ORDERED: Metoclopramide 10 MG/2 ML SDV IVPUSH ONE (00:52)
--- NOTE | 2019-01-28 00:52 | PCM.SN ---
- Free Text/Narrative Note: Patient became completely dilated at 1130 hrs. and began pushing at 1135 hrs.) 2335 hrs.) on 01/27/19. Patient has been pushing for 1 hour and 15 minutes epidural has been turned off for 1 hour and 15 minutes as well. Patient has made no progress from 0 station with any descent into the pelvis. Patient is exhausted and patient now complaining of left upper pubic pain which is constant. No vaginal bleeding indicate separation of the lower uterine incision. Patient is exhausted and patient's and I have decided to proceed with section. Pitocin has been turned off.
[2019-01-28] MEDS ORDERED: Metoclopramide 10 MG/2 ML SDV ONE (01:02)
[2019-01-28] MEDS ORDERED: Phenylephrine/Normal Saline 100 MCG/ML 10 ML Syringe ONE (01:12)
[2019-01-28] MEDS ORDERED: Ondansetron 4 MG/2 ML SDV ONE (01:12)
[2019-01-28] MEDS ORDERED: Ketorolac 30 MG/ML SDV ONE (01:12)
[2019-01-28] MEDS ORDERED: Lactated Ringers 2,000 ML ONE (01:12)
[2019-01-28] MEDS ORDERED: Oxytocin 10 Units/1 ML SDV ONE (01:12)
[2019-01-28] MEDS ORDERED: Lidocaine 2% with EPINEPHrine 1:200,000 20 ML SDV ONE (01:12)
[2019-01-28] MEDS ORDERED: Morphine PF 10 MG/10 ML SDV ONE (01:12)
[2019-01-28] MEDS ORDERED: fentaNYL 100 MCG/2 ML SDV ONE (01:12)
[2019-01-28] MEDS ORDERED: HYDROmorphone 0.5 MG/0.5 ML Syringe IVPUSH PRN (01:51)
[2019-01-28] MEDS ORDERED: fentaNYL 100 MCG/2 ML SDV IVPUSH PRN (01:51)
[2019-01-28] MEDS ORDERED: diphenhydrAMINE 50 MG/ML SDV IVPUSH PRN ×2 (01:51→05:02)
[2019-01-28] MEDS ORDERED: ePHEDrine 50 MG/ML SDV IVPUSH PRN ×2 (01:51→05:02)
[2019-01-28] MEDS ORDERED: Ondansetron 4 MG/2 ML SDV IVPUSH PRN (01:51)
[2019-01-28] MEDS ORDERED: Meperidine 50 MG/ML Vial ONE (01:53)
[2019-01-28] MEDS ORDERED: Phenylephrine 1 MG in Sodium Chloride 0.9% 10 ML IV SCH (02:00)
--- NOTE | 2019-01-28 02:39 | PCM.POSTAN ---
POST ANESTHESIA ASSESSMENT - MENTAL STATUS Mental Status: Alert - VITAL SIGNS Pulse Rate: 99 SaO2: 99 Resp Rate: 23 Blood Pressure: 108/56 Temperature: 36.4 C - RESPIRATORY Respiratory Status: Respiratory Rate WNL, Airway Patent, O2 Saturation Stable - CARDIOVASCULAR CV Status: Pulse Rate WNL, Blood Pressure Stable - GASTROINTESTINAL GI Status: No Symptoms - POST OP HYDRATION Hydration Status: Adequate & Stable
--- NOTE | 2019-01-28 02:53 | PCM.OPNOTE ---
- General Post-Op/Procedure Note Date of Surgery/Procedure: 01/28/19 Pre Op Diagnosis: Arrestive descent second stage, prior section, failed trial of labor after /, JK a antibody Post-Op Diagnosis: Same plus nuchal cord times one, persistent occiput posterior. Anesthesia Technique: Epidural Primary Surgeon: Manuel Gonzales Secondary Surgeon: Maryam Nelson Anesthesia Provider: Tiffanie Abarca Reason Sales Support Representative Was Necessary: Asst. surgery, decrease comorbidity and mortality. Role of Sales Support Representative: Asst. surgery, decrease comorbidity and mortality. Fluid Replacement, Intraop: 800 Output, Urine Amount: 100 EBL in mLs: 500 Drain/Tube Comments:: Mitchell Complications: None Condition: Good Free Text/Narrative:: Intake & Output 01/27/19 01/27/19 01/28/19 14:59 22:59 06:59 Intake Total 3000 Output Total 100 Balance 3000 -100 Patient was transported to the operating room and placed under epidural anesthesia in the supine position with a wedge under the right hip and right flank. SCDs in place and functioning prior surgery. Prophylactic antibiotics given because of her allergy to cephalosporins and clindamycin 900 mg and gentamicin 465 mg.Trak C drape applied to allow better visualization of the area of the planned incision. Prepared and draped in a sterile fashion with Mitchell catheter to gravity drainage. Timeout was performed confirming name date of and procedure as section with failed trial of labor after /. Adequate level of anesthesia was confirmed the area of the planned incision marked and was brought to the operating room. Injecting 20 mL of 0.5% Marcaine without epinephrine in the area of the planned incision the Pfannenstiel incision was made and care was sharp section to into the anterior fascia, the peritoneal cavity was entered without difficulty. A low segment transverse was performed the area of the previous scar was intact with no fenestration or disruption of the prior section. Upon entry into the amnionic cavity amnionic fluid was clear. The fetus was in a occiput posterior presentation with nuchal cord times one delivery was accomplished without difficulty cord clamped and handed to the channel machine operator (Dr. Thrasher) who cared for the . Routine cord blood was collected. Placenta was removed manually. 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 The endometrial cavity was inspected no remnants of placenta or membrane. Sponge needle pack instrument and sharp count correct times one and the uterus was closed with 2 layers. First layer running locking suture of 0 Monocryl. Second layer a horizontal imbricating suture of modified Lembert type. Hemostasis was normal both tubes and ovaries were normal. Cul-de-sac and bilateral gutters were cleaned of blood in the uterus placed into the abdominal cavity. The uterine incision reinspected and no bleeding. Sponge needle pack instrument and sharp count correct 2 and the abdominal cavity was closed with #1 PDS suture running. Irrigation was carried out and subcutaneous tissue and 3 interrupted 0 Monocryl sutures placed for approximation of the subcutaneous tissue. The skin was closed with subcuticular suture of 3-0 Monocryl on Maxime needle. Dermabond Preneo applied. Clots cleaned from the vagina at the end of the procedure. Patient was transported postanesthesia care unit in satisfactory condition. No blood transfusions were required. This note was created, at least in part, by the use of [employer] voice dictation system. Inadvertent typographical errors, due to software recognition problems, may exist.
[2019-01-28] MEDS ORDERED: Bupivacaine 0.5% 30 ML SDV ONE (03:04)
[2019-01-28] MEDS ORDERED: Acetaminophen 325 MG Tab PO PRN (05:02)
[2019-01-28] MEDS ORDERED: Lanolin 100% Cream 7 GM Tube TOP PRN (05:02)
[2019-01-28] MEDS ORDERED: Dextrose 5%-Lactated Ringers 1,000 ML IV SCH (05:02)
[2019-01-28] MEDS ORDERED: Naloxone 0.4 MG/ML SDV IVPUSH PRN (05:02)
[2019-01-28] MEDS ORDERED: Witch Hazel Medicated Pads 40/Jar TOP PRN (05:02)
[2019-01-28] MEDS ORDERED: Ondansetron 4 MG/2 ML SDV IV PRN (05:02)
[2019-01-28] MEDS ORDERED: Docusate Sodium 100 MG Cap PO PRN (05:02)
--- NOTE | 2019-01-28 07:36 | PCM48HPAN ---
Post Anesthesia Note - EVALUATION WITHIN 48HRS OF ANESTHETIC Vital Signs in Normal Range: Yes Patient Participated in Evaluation: Yes Respiratory Function Stable: Yes Airway Patent: Yes Cardiovascular Function Stable: Yes Hydration Status Stable: Yes Pain Control Satisfactory: Yes Nausea and Vomiting Control Satisfactory: Yes Mental Status Recovered: Yes
[2019-01-28] MEDS: Simethicone 80 MG Tab.Chew PO SCH ×4 (08:08→21:03)
[2019-01-28] MEDS: Ketorolac 30 MG/ML SDV IVPUSH SCH ×3 (08:08→21:00)
[2019-01-28] MEDS: Acetaminophen/oxyCODONE 325-5 MG Tab PO PRN ×2 (14:11→18:33)
[2019-01-29] MEDS: Acetaminophen/oxyCODONE 325-5 MG Tab PO PRN ×3 (00:57→11:54)
[2019-01-29] MEDS ORDERED: Ibuprofen 600 MG Tab PO PRN (02:00)
--- NOTE | 2019-01-29 04:00 | PCM.DCSUM1 ---
Discharge Summary - Hospital Course Brief History: Doing well without complaints today Diagnosis: Stroke: No Modified Brandi Scale: No Symptoms at All Modified Brandi Scale Score: 0 - Discharge Data Discharge Date: 01/29/19 Discharge Disposition: Home, Self-Care 01 Condition: Good - Patient Summary/Data Hospital Course: Admitted in labor consented for trial of labor after , cut to complete and pushing and became exhausted with minimal descent of head therefore repeat section was undertaken. Expressed desire for discharge home on postoperative day #2 after uncomplicated uneventful course - Patient Instructions Diet: Usual Diet as Tolerated Activity: No Strenuous Activities Activity, Other: pelvic rest Driving: Do Not Drive Showering/Bathing: May Shower Wound/Incision Care: Keep Operative Site/Wound Site Clean and Dry Notify Provider of: Fever, Increased Pain, Swelling and Redness, Drainage, Nausea and/or Vomiting - Discharge Plan *PRESCRIPTION DRUG MONITORING PROGRAM REVIEWED*: No *COPY OF PRESCRIPTION DRUG MONITORING REPORT IN PATIENT KARLENE: No Home Medications: Home Meds Vits #93/Iron Fum/FA [ Formula Tablet] 1 tab PO DAILY 01/27/19 [History] diphenhydrAMINE HCl [Benadryl Allergy] 25 mg PO DAILY PRN 01/27/19 [History] Referrals: Manuel Gonzales MD [Primary Care Provider] - (1-2 weeks) - Discharge Summary/Plan Comment DC Time >30 min.: No - General Info Functional Status: Reports: Pain Controlled - Review of Systems General: Reports: No Symptoms HEENT: Reports: No Symptoms Pulmonary: Reports: No Symptoms Cardiovascular: Reports: No Symptoms Gastrointestinal: Reports: No Symptoms Genitourinary: Reports: No Symptoms Musculoskeletal: Reports: No Symptoms Skin: Reports: No Symptoms Neurological: Reports: No Symptoms Psychiatric: Reports: No Symptoms - Patient Data Vitals - Most Recent: Last Vital Signs Temp 36.7 C 01/28/19 21:08 Pulse 101 H 01/28/19 21:09 Resp 15 01/29/19 01:00 BP 124/76 01/28/19 21:08 Pulse Ox 99 01/29/19 01:00 Weight - Most Recent: 93.894 kg I&O - Last 24 hours: Intake & Output 01/28/19 01/28/19 01/29/19 14:59 22:59 06:59 Intake Total 480 1000 Output Total 1775 1600 600 Balance -5146 -692 -931 Lab Results - Last 24 hrs: Laboratory Results - last 24 hr 01/27/19 01/28/19 Range/Units 12:58 06:50 WBC 14.32 H (3.98-10.04) K/mm3 RBC 3.91 L (3.98-5.22) M/mm3 Hgb 9.3 L (11.2-15.7) gm/L Hct 29.2 L (34.1-44.9) % MCV 74.7 L (79.4-94.8) fl MCH 23.8 L (25.6-32.2) pg MCHC 31.8 L (32.2-35.5) g/dl RDW Std Deviation 40.8 (36.4-46.3) fL Plt Count 291 (182-369) K/mm3 MPV 9.5 (9.4-12.3) fl Neut % (Auto) 82.9 H (34.0-71.1) % Lymph % (Auto) 11.6 L (19.3-51.7) % [place] % (Auto) 5.2 (4.7-12.5) % Eos % (Auto) 0 L (0.7-5.8) Baso % (Auto) 0.0 L (0.1-1.2) % Neut # (Auto) 11.88 H (1.56-6.13) K/mm3 Lymph # (Auto) 1.66 (1.18-3.74) K/mm3 [place] # (Auto) 0.74 H (0.24-0.36) K/mm3 Eos # (Auto) 0.00 L (0.04-0.36) K/mm3 Baso # (Auto) 0.00 L (0.01-0.08) K/mm3 Manual Slide Review Abnormal smear Antibody Identification Anti-Jka Med Orders - Current: Current Medications Acetaminophen (Tylenol) 650 mg PO Q4H PRN PRN Reason: mild pain or fever Diphenhydramine HCl (Benadryl) 25 mg IVPUSH Q6H PRN PRN Reason: Itching or Nausea Last Admin: 01/28/19 05:16 Dose: 25 mg Docusate Sodium (Colace) 100 mg PO Q12H PRN PRN Reason: Constipation Emollient Ointment (Lansinoh Hpa) 0 gm TOP ASDIRECTED PRN PRN Reason: Sore Nipples Ephedrine Sulfate (Ephedrine Sulfate) 5 mg IVPUSH SEECOMMENT PRN PRN Reason: Other Ibuprofen (Motrin) 600 mg PO Q6H PRN PRN Reason: mild pain or fever Last Admin: 01/29/19 03:42 Dose: 600 mg Naloxone HCl (Narcan) 0.1 mg IVPUSH SEECOMMENT PRN PRN Reason: Respiratory Depression Ondansetron HCl (Zofran) 4 mg IV Q8H PRN PRN Reason: Nausea/Vomiting Oxycodone/Acetaminophen (Percocet 325-5 Mg) 1 - 2 tab PO Q4H PRN PRN Reason: Pain Last Admin: 01/29/19 00:57 Dose: 2 tab Simethicone (Simethicone) 80 mg PO PCBED [place]ERETTE Last Admin: 01/28/19 21:03 Dose: 80 mg Witch Jacinta (Tucks) 1 pad TOP ASDIRECTED PRN PRN Reason: Perineal Comfort Measure Discontinued Medications Bupivacaine HCl (Marcaine 0.5%) Confirm Administered Dose 30 ml .ROUTE .STK-MED ONE Stop: 01/28/19 03:05 Last Admin: 01/28/19 01:51 Dose: 20 ml Citric Acid/Sodium Citrate (Bicitra Solution) 30 ml PO ONETIME ONE Stop: 01/28/19 00:53 Last Admin: 01/28/19 01:01 Dose: 30 ml Diphenhydramine HCl (Benadryl) 25 mg IVPUSH Q6H PRN PRN Reason: Pruritis Diphenhydramine HCl (Benadryl) 25 mg IVPUSH Q6H PRN PRN Reason: pruritis Ephedrine Sulfate (Ephedrine Sulfate) 5 mg IVPUSH ASDIRECTED PRN PRN Reason: Hypotension Ephedrine Sulfate (Ephedrine Sulfate) 5 mg IVPUSH ASDIRECTED PRN PRN Reason: Hypotension Fentanyl (Sublimaze) 100 mcg EPIDUR ONETIME PRN PRN Reason: Pain Last Admin: 01/27/19 15:39 Dose: 100 mcg Fentanyl (Sublimaze) Confirm Administered Dose 100 mcg .ROUTE .STK-MED ONE Stop: 01/28/19 01:13 Fentanyl (Sublimaze) 50 mcg IVPUSH Q5M PRN PRN Reason: Pain Fentanyl/Bupivacaine HCl (Feesljcl-Jfido-Nx 2 Mcg/Ml-0.125%) 100 ml EPIDUR ONETIME ONE Stop: 01/27/19 14:20 Last Admin: 01/27/19 15:39 Dose: 100 ml Gentamicin Sulfate (Pharmacy To Dose - Gentamicin) 1 dose .XX ASDIRECTED [place]ERETTE Hydromorphone HCl (Dilaudid) 0.5 mg IVPUSH Q15M PRN PRN Reason: Pain (severe 7-10) Lactated Ringer's (Ringers, Lactated) 1,000 mls @ 100 mls/hr IV ASDIRECTED EVERETTE Last Admin: 01/27/19 22:37 Dose: 999 mls/hr Oxytocin/Lactated Ringer's (Pitocin In Lr 10 Units/1,000 Ml) 10 unit in 1,000 mls @ 12 mls/hr IV TITRATE EVERETTE; Protocol Last Titration: 01/27/19 22:35 Dose: 17 munits/min, 102 mls/hr Clindamycin Phosphate 900 mg/ (Sodium Chloride) 106 mls @ 212 mls/hr IV ONETIME ONE Stop: 01/28/19 01:29 Last Admin: 01/28/19 01:17 Dose: 212 mls/hr Gentamicin Sulfate 470 mg/ (Sodium Chloride) 111.75 mls @ 223.5 mls/hr IV Q24H EVERETTE Last Admin: 01/28/19 02:13 Dose: 223.5 mls/hr Oxytocin 20 unit/ Lactated (Ringer's) 1,002 mls @ 500 mls/hr IV TITRATE EVERETTE; Protocol Lactated Ringer's (Ringers, Lactated) Confirm Administered Dose 2,000 mls @ as directed .ROUTE .STK-MED ONE Stop: 01/28/19 01:13 Phenylephrine HCl 1 mg/ Sodium (Chloride) 10.1 mls @ 1 mls/sec IV TITRATE EVERETTE; Protocol Dextrose/Lactated Ringer's (Dextrose 5%-Lactated Ringers) 1,000 mls @ 125 mls/ hr IV ASDIRECTED [place]ETTE Stop: 01/28/19 13:01 Last Admin: 01/28/19 06:54 Dose: 125 mls/hr Ketorolac Tromethamine (Toradol) Confirm Administered Dose 30 mg .ROUTE .STK- MED ONE Stop: 01/28/19 01:13 Ketorolac Tromethamine (Toradol) 30 mg IVPUSH Q6H [place]ETTE Stop: 01/28/19 20:01 Last Admin: 01/28/19 21:00 Dose: 30 mg Lidocaine/Epinephrine (Xylocaine-Mpf 2%-Epi 1:200,000) Confirm Administered Dose 20 ml .ROUTE .STK-MED ONE Stop: 01/28/19 01:13 Meperidine HCl (Meperidine) Confirm Administered Dose 50 mg .ROUTE .STK-MED ONE Stop: 01/28/19 01:54 Metoclopramide HCl (Reglan) 10 mg IVPUSH ONETIME ONE Stop: 01/28/19 00:53 Last Admin: 01/28/19 01:01 Dose: 10 mg Metoclopramide HCl (Reglan) Confirm Administered Dose 10 mg .ROUTE .JK-Group-MED ONE Stop: 01/28/19 01:03 Last Admin: 01/28/19 01:10 Dose: Not Given Morphine Sulfate (Duramorph Pf) Confirm Administered Dose 10 mg .ROUTE .STDigital Trowel-MED ONE Stop: 01/28/19 01:13 Nalbuphine HCl (Nubain) 10 mg IVPUSH Q2H PRN PRN Reason: pain Ondansetron HCl (Zofran) 4 mg IVPUSH Q4H PRN PRN Reason: Nausea/Vomiting Ondansetron HCl (Zofran) 4 mg IVPUSH ONETIME PRN PRN Reason: Nausea/Vomiting Ondansetron HCl (Zofran) Confirm Administered Dose 4 mg .ROUTE .STDigital Trowel-MED ONE Stop: 01/28/19 01:13 Ondansetron HCl (Zofran) 4 mg IVPUSH ONETIME PRN PRN Reason: Nausea/Vomiting Oxytocin (Pitocin) Confirm Administered Dose 20 unit .ROUTE .STK-MED ONE Stop: 01/28/19 01:13 Phenylephrine HCl (Phenylephrine In Ns 100 Mcg/Ml) Confirm Administered Dose 1 mg .ROUTE .STK-MED ONE Stop: 01/28/19 01:13 Sodium Chloride (Saline Flush) 10 ml FLUSH ASDIRECTED PRN PRN Reason: Keep Vein Open - Exam General: Reports: Alert, Oriented HEENT: Reports: Pupils Equal, Pupils Reactive, EOMI, Mucous Membr. Moist/[place] Neck: Reports: Supple Lungs: Reports: Clear to Auscultation, Normal Respiratory Effort Cardiovascular: Reports: Regular Rate, Regular Rhythm GI/Abdominal Exam: Normal Bowel Sounds, Soft, Non-Tender, No Organomegaly, No Distention, No Abnormal Bruit, No Mass, Pelvis Stable Rectal (Female) Exam: Normal Exam, Normal Rectal Tone Back Exam: Reports: Normal Inspection, Full Range of Motion Extremities: Normal Inspection, Normal Range of Motion, Non-Tender, No Pedal Edema, Normal Capillary Refill Skin: Reports: Warm, Dry, Intact Wound/Incisions: Reports: Healing Well Neurological: Reports: No New Focal Deficit Psy/Mental Status: Reports: Alert, Normal Affect, Normal Mood
[2019-01-29] MEDS: Simethicone 80 MG Tab.Chew PO SCH ×2 (08:14→15:32)
[2019-01-29 10:16] VITALS: BP 128/74
== END 2019-01-29 13:30 | disposition home or self-care (01) | DRG 787 ==
LOC: JD.OBCHECK 12:12 → JD.OB 12:16 → JD.OBCHECK 13:38 → OBSVTOIN 01-28 01:55 → JD.OB 01-28 01:56
PROVIDERS: ADMIT Obstetrics & Gynecology; ATTEND Obstetrics & Gynecology
PROC: 3E0R3BZ Introduction of Anesthetic Agent into Spinal Canal, Percutaneous Approach (ICD-10-PCS; 2019-01-27)
PROC: 00HU33Z Insertion of Infusion Device into Spinal Canal, Percutaneous Approach (ICD-10-PCS; 2019-01-27)
PROC: 10D00Z1 Extraction of Products of Conception, Low, Open Approach (ICD-10-PCS; principal; 2019-01-28)
PROC: 6A550ZT Pheresis of Cord Blood Stem Cells, Single (ICD-10-PCS; principal; 2019-01-28)
PROC: 10H07YZ Insertion of Other Device into Products of Conception, Via Natural or Artificial Opening (ICD-10-PCS; principal; 2019-01-28)
DX: O34.219 Maternal care for unspecified type scar from previous cesarean delivery (principal); O98.32 Other infections with a predominantly sexual mode of transmission complicating childbirth; O99.354 Diseases of the nervous system complicating childbirth; Z3A.39 39 weeks gestation of pregnancy; Z37.0 Single live birth; N85.8 Other specified noninflammatory disorders of uterus; O75.81 Maternal exhaustion complicating labor and delivery; A63.0 Anogenital (venereal) warts; O34.03 Maternal care for unspecified congenital malformation of uterus, third trimester; Q51.3 Bicornate uterus; O69.81X0 Labor and delivery complicated by cord around neck, without compression, not applicable or unspecified; O64.0XX0 Obstructed labor due to incomplete rotation of fetal head, not applicable or unspecified; O99.344 Other mental disorders complicating childbirth; F32.9 Major depressive disorder, single episode, unspecified; F41.9 Anxiety disorder, unspecified; O36.1930 Maternal care for other isoimmunization, third trimester, not applicable or unspecified; G43.909 Migraine, unspecified, not intractable, without status migrainosus; Z88.1 Allergy status to other antibiotic agents; Z88.8 Allergy status to other drugs, medicaments and biological substances; Z87.891 Personal history of nicotine dependence
CPT/HCPCS: 36415; 51701; 51702; 59025; 85025; 86592; 86850; 86870; 86900; 86901; 94762; A9270-GY; J1200; J1580; J1885; J2175; J2270; J2370; J2405; J2590; J2765; J3010; J3490; J7030; J7042; J7120

== ENCOUNTER 2022-05-23 15:02 | Emergency (ER) | payer OTHER ==
[2022-05-23 15:18] VITALS: BP 123/78; PULSE 100
[2022-05-23] MEDS ORDERED: Lidocaine 1% with EPINEPHrine 1:100,000 20 ML MDV INJECT ONE (15:22)
== END 2022-05-23 17:30 | disposition home or self-care (01) ==
LOC: JD.ED 15:02
DX: S61.422A Laceration with foreign body of left hand, initial encounter (principal); F17.210 Nicotine dependence, cigarettes, uncomplicated; Z91.048 Other nonmedicinal substance allergy status; Z88.1 Allergy status to other antibiotic agents; Z88.8 Allergy status to other drugs, medicaments and biological substances; W25.XXXA Contact with sharp glass, initial encounter
CPT/HCPCS: 12001; 73130-26-LT; 73130-LT; 99283

== ENCOUNTER 2024-07-03 17:13 | Emergency (ER) | payer BC, MEDICAID ==
[2024-07-03 19:01] LABS: BASOPHILS PERCENT AUTO 0.4 % (0.0-1.0); EOSINOPHILS ABSOLUTE AUTO 0.1 K/mm3 (0.0-0.4); HEMATOCRIT 37.8 % (37.0-47.0); HEMOGLOBIN 11.8 gm/dl (12.0-16.0); IMMATURE GRAN ABSOLUTE AUTO 0.04 K/mm3 (0.00-0.05); IMMATURE GRAN PERCENT AUTO 0.6 % (0.0-0.4); LYMPHOCYTES ABSOLUTE AUTO 2.3 K/mm3 (1.0-4.8); MEAN CORPUSCULAR HEMOGLOBIN 24.9 pg (28.0-32.0); MEAN CORPUSCULAR HGB CONC 31.2 g/dl (32.0-36.0); MEAN CORPUSCULAR VOLUME 79.7 fl (83.0-99.0); MEAN PLATELET VOLUME 8.7 fl (9.4-12.3); MONOCYTES ABSOLUTE AUTO 0.8 K/mm3 (0.0-0.8); MONOCYTES PERCENT AUTO 10.6 % (0.0-8.0); NEUTROPHILS PERCENT AUTO 55.4 % (41.0-71.0); PLATELET COUNT,PLT 312 K/mm3 (150-400); RED BLOOD CELL COUNT 4.74 M/mm3 (4.10-5.30); WHITE BLOOD CELL COUNT,WBC 7.24 K/mm3 (3.9-11.3)
[2024-07-03] MEDS: Sodium Chloride 0.9% 10 ML Syringe FLUSH ONE (19:24)
[2024-07-03] MEDS: Iopamidol 755 Mg/ML 100 ML Bottle IVPUSH ONE (19:24)
[2024-07-03 19:25] LABS: LACTIC ACID 0.5 mmol/L (0.4-2.0)
[2024-07-03 19:31] LABS: ALBUMIN 3.6 g/dl (3.4-5.0); ANION GAP 12.4 (5-15); BILIRUBIN TOTAL 0.3 mg/dL (0.2-1.0); BUN/CREATININE RATIO 24.3 (14-18); CALCIUM 8.9 mg/dL (8.5-10.1); CREATININE 0.7 mg/dL (0.55-1.02); EST CRCL DRUG DOSING (CG) 82.11 mL/min; POTASSIUM,K 4.4 mEq/L (3.5-5.1); PROTEIN TOTAL,TP 7.1 g/dl (6.4-8.2)
[2024-07-03] MEDS: Ondansetron 4 MG/2 ML SDV IVPUSH ONE (20:28)
[2024-07-03] MEDS: Sodium Chloride 0.9% 1,000 ML IV SCH (20:28)
[2024-07-03 20:36] LABS: APPEARANCE,URINE CLEAR (Clear); BILIRUBIN,URINE NEGATIVE (Negative); COLOR,URINE LIGHT YELLOW (Yellow); GLUCOSE,URINE NEGATIVE (Negative); KETONES,URINE NEGATIVE (Negative); LEUKOCYTE ESTERASE,URINE NEGATIVE (Negative); NITRITE,URINE NEGATIVE (Negative); OCCULT BLOOD,URINE TRACE-INTACT (Negative); PROTEIN,URINE NEGATIVE (Negative); UROBILINOGEN,URINE 0.2 (0.2-1.0)
[2024-07-03 20:42] LABS: BACTERIA,URINE FEW /hpf (FEW); MUCUS,URINE FEW /hpf (FEW); WBC,URINE 0-5 /hpf (0-5)
[2024-07-03 22:46] VITALS: BP 120/91; PULSE 96
== END 2024-07-03 22:05 | disposition home or self-care (01) ==
LOC: JD.ED 17:13
DX: R22.2 Localized swelling, mass and lump, trunk (principal); Z91.048 Other nonmedicinal substance allergy status; Z88.8 Allergy status to other drugs, medicaments and biological substances
CPT/HCPCS: 36415; 74177; 80053; 81001; 83605; 83690; 85025; 87635; 96361; 96374; 99284; J2405; J3490; J7030; Q9967; U0002

== ENCOUNTER 2025-08-08 14:22 | Inpatient (IN) | payer SELFPAY ==
[2025-08-08] MEDS ORDERED: Naloxone 0.4 MG/ML SDV IVPUSH PRN (15:01)
[2025-08-08 15:44] LABS: BASOPHILS ABSOLUTE AUTO 0.1 K/mm3 (0.0-0.2); BASOPHILS PERCENT AUTO 0.5 % (0.0-1.0); EOSINOPHILS ABSOLUTE AUTO 0.2 K/mm3 (0.0-0.4); EOSINOPHILS PERCENT AUTO 1.6 % (0.0-6.0); IMMATURE GRAN ABSOLUTE AUTO 0.07 K/mm3 (0.00-0.05); IMMATURE GRAN PERCENT AUTO 0.6 % (0.0-0.4); LYMPHOCYTES ABSOLUTE AUTO 2.4 K/mm3 (1.0-4.8); LYMPHOCYTES PERCENT AUTO 21.8 % (24.0-44.0); MEAN PLATELET VOLUME 8.9 fl (9.4-12.3); MONOCYTES ABSOLUTE AUTO 0.6 K/mm3 (0.0-0.8); MONOCYTES PERCENT AUTO 5.2 % (0.0-8.0); NEUTROPHILS ABSOLUTE AUTO 7.7 K/mm3 (1.8-7.7); NEUTROPHILS PERCENT AUTO 70.3 % (41.0-71.0); NRBC ABSOLUTE 0.00 (0.00-0.02); NRBC PERCENT 0.0 % (0.0-0.2); PLATELET COUNT,PLT 387 K/mm3 (150-400); RED BLOOD CELL COUNT 5.08 M/mm3 (4.10-5.30); WHITE BLOOD CELL COUNT,WBC 10.91 K/mm3 (3.9-11.3)
[2025-08-08] MEDS: Sodium Chloride 0.9% 10 ML Syringe FLUSH PRN (15:53)
[2025-08-08 16:07] LABS: A/G RATIO 0.9 (1-2); ALANINE AMINOTRANSFERASE,ALT 25.0 U/L (14-59); ASPARTATE AMNIOTRANSFERASE,AST 14.0 U/L (15-37); BILIRUBIN TOTAL 0.1 mg/dL (0.2-1.0); BLOOD UREA NITROGEN,BUN 22.0 mg/dL (7-18); CARBON DIOXIDE,CO2 25.0 mEq/L (21-32); CHLORIDE,CL 105.0 mEq/L (98-107); CREATININE 0.6 mg/dL (0.55-1.02); EST CRCL DRUG DOSING (CG) 94.9 mL/min; ESTIMATED GFR 121.0 mL/min (>60); GLUCOSE RANDOM 100.0 mg/dL (70-99); POTASSIUM,K 3.8 mEq/L (3.5-5.1); PROTEIN TOTAL,TP 7.6 g/dl (6.4-8.2); SODIUM,NA 141.0 mEq/L (136-145); TROPONIN I HIGH SENSITIVITY 4.0 pg/mL (<=51)
[2025-08-08] MEDS: Iopamidol 612 MG/ML 100 ML Bottle IVPUSH ONE (16:45)
[2025-08-08] MEDS: Sodium Chloride 0.9% 10 ML Syringe FLUSH ONE (16:45)
[2025-08-08 18:14] LABS: APPEARANCE,URINE CLEAR (Clear); GLUCOSE,URINE NEGATIVE (Negative); OCCULT BLOOD,URINE NEGATIVE (Negative)
[2025-08-08 18:34] LABS: BUPRENORPHINE SCREEN,URINE NEGATIVE (CUTOFF=10); METHADONE SCREEN, URINE NEGATIVE (CUTOFF=200); METHAMPHETAMINES SCREEN, URINE PRESUMPTIVE POSITIVE (CUTOFF=500); OXYCODONE SCREEN,URINE NEGATIVE (CUT0FF=100); THC SCREEN,URINE 20 NG/ML NEGATIVE (CUTOFF=50)
[2025-08-08 18:36] LABS: AMPHETAMINES SCREEN, URINE PRESUMPTIVE POSITIVE (CUTOFF=500)
[2025-08-08] MEDS: Ondansetron 4 MG/2 ML SDV IVPUSH ONE (19:43)
[2025-08-08] MEDS ORDERED: Acetaminophen/oxyCODONE 325-5 MG Tab PO PRN (20:03)
[2025-08-08] MEDS: Levofloxacin/Dextrose 5%-Water 750 MG in Premix Bag 1 BAG IV ONE (20:35)
[2025-08-08] MEDS: metroNIDAZOLE/Normal Saline 500 MG in Premix Bag 1 BAG IV SCH (20:46)
[2025-08-08] MEDS: Ondansetron 4 MG/2 ML SDV IVPUSH PRN (22:12)
[2025-08-08] MEDS: Ketorolac 30 MG/ML SDV IVPUSH SCH (22:16)
[2025-08-08] MEDS: Heparin Sodium 5,000 Units/ML Vial SUBCUT SCH (22:40)
[2025-08-09] MEDS ORDERED: Ketamine HCL/NACL, ISO-OSM 50 MG/5 ML Syringe ONE (07:53)
[2025-08-09] MEDS ORDERED: fentaNYL 250 MCG/5 ML SDV ONE (07:53)
[2025-08-09] MEDS ORDERED: Midazolam 1 MG/ML 2 ML SDV ONE (07:53)
[2025-08-09] MEDS ORDERED: Dexamethasone 4 MG/ML 5 ML MDV ONE (07:58)
[2025-08-09] MEDS ORDERED: Ketorolac 30 MG/ML SDV ONE (07:58)
[2025-08-09] MEDS ORDERED: Esmolol 100 MG/10 ML SDV ONE (07:58)
[2025-08-09] MEDS ORDERED: Ondansetron 4 MG/2 ML SDV ONE (07:58)
[2025-08-09] MEDS ORDERED: Glycopyrrolate 0.2 MG/ML 2 ML SDV ONE (07:58)
[2025-08-09] MEDS ORDERED: dexmedeTOMIDine HCl 200 MCG/2 ML SDV ONE (07:58)
[2025-08-09] MEDS ORDERED: Sodium Chloride 0.9% 10 ML Syringe FLUSH PRN (08:04)
[2025-08-09] MEDS ORDERED: propofoL 1,000 MG/100 ML 100 ML ONE (08:45)
[2025-08-09] MEDS: Lactated Ringers 1,000 ML IV SCH (08:59)
[2025-08-09] MEDS ORDERED: Lactated Ringers 1,000 ML ONE (09:26)
[2025-08-09] MEDS ORDERED: Phenylephrine 1% 10 MG/ML SDV ONE (09:30)
[2025-08-09] MEDS ORDERED: Iopamidol 612 MG/ML 30 ML SDV ONE (09:38)
[2025-08-09] MEDS ORDERED: Sodium Chloride 0.9% 50 ML SDV ONE (09:39)
[2025-08-09] MEDS ORDERED: Labetalol 100 MG/20 ML MDV ONE (09:53)
[2025-08-09] MEDS ORDERED: Ondansetron 4 MG/2 ML SDV IVPUSH PRN (12:19)
[2025-08-09] MEDS: fentaNYL 100 MCG/2 ML SDV IVPUSH PRN (12:37)
[2025-08-09] MEDS: Sodium Chloride 0.9% 10 ML Syringe FLUSH SCH (13:02)
[2025-08-09 16:44] VITALS: BP 157/80; PULSE 88
== END 2025-08-09 18:43 | disposition home or self-care (01) | DRG 419 ==
LOC: JD.ED 14:22 → JD.MS 20:02
PROVIDERS: ADMIT Surgery; ATTEND Surgery
PROC: 0FT44ZZ Resection of Gallbladder, Percutaneous Endoscopic Approach (ICD-10-PCS; principal; 2025-08-08)
PROC: BF131ZZ Fluoroscopy of Gallbladder and Bile Ducts using Low Osmolar Contrast (ICD-10-PCS; 2025-08-08)
DX: K81.0 Acute cholecystitis (principal); G43.909 Migraine, unspecified, not intractable, without status migrainosus; F41.9 Anxiety disorder, unspecified; F32.A Depression, unspecified; F17.210 Nicotine dependence, cigarettes, uncomplicated; Z88.8 Allergy status to other drugs, medicaments and biological substances; Z91.048 Other nonmedicinal substance allergy status; Z79.1 Long term (current) use of non-steroidal anti-inflammatories (NSAID); Z79.899 Other long term (current) drug therapy; Z79.891 Long term (current) use of opiate analgesic; Z98.891 History of uterine scar from previous surgery; Z98.890 Other specified postprocedural states
CPT/HCPCS: 36415; 74177; 74177-26; 74300; 74300-26; 76705; 76705-26; 80053; 80306; 81003; 83690; 84484; 84703; 85025; 86140; 93005; 96361; 96372; 96374; 99285-25; J1100; J1171; J1596; J1644; J1805; J1836; J1885; J1920; J1956; J2003; J2250; J2270; J2371; J2405; J2704; J3010; J3490; J7030; J7120; Q9967